=== PATIENT | female | born 1970 | race Asian ===

== ENCOUNTER → 2017-07-02 | Outpatient (CLI) | payer BC, OTHER ==
[~2017-07-02] MED LIST: ASPIR 8181 MG PO; IBUPROFEN 600600 M1 PO; LEVOTHYROXIN0.025 MG PO; PRENATAL PO
== END ==
LOC: RAD 01:42
DX: Z12.31 Encounter for screening mammogram for malignant neoplasm of breast (principal)

== ENCOUNTER → 2018-07-05 | Outpatient (CLI) | payer BC, OTHER | LOC: RAD 01:59 | DX: Z12.31 Encounter for screening mammogram for malignant neoplasm of breast (principal) ==

== ENCOUNTER → 2018-07-19 | Outpatient (CLI) | payer BC, OTHER | LOC: ULTRA 09:28 | DX: N63.21 Unspecified lump in the left breast, upper outer quadrant (principal) ==

== ENCOUNTER → 2018-08-13 | Outpatient (CLI) | payer BC, OTHER | LOC: ULTRA 07:06 | DX: K80.20 Calculus of gallbladder without cholecystitis without obstruction (principal); N92.6 Irregular menstruation, unspecified ==

== ENCOUNTER → 2019-01-17 | Outpatient (CLI) | payer BC, OTHER | LOC: RAD 03:20 | DX: R92.8 Other abnormal and inconclusive findings on diagnostic imaging of breast (principal) ==

== ENCOUNTER → 2019-07-31 | Outpatient (CLI) | payer BC, OTHER | LOC: RAD 02:54 | DX: N60.02 Solitary cyst of left breast (principal) ==

== ENCOUNTER → 2020-08-16 | Outpatient (CLI) | payer BC, OTHER | LOC: BC 08-12 16:13 | PROVIDERS: ATTEND Nurse Practitioner | DX: N63.22 Unspecified lump in the left breast, upper inner quadrant (principal) ==

== ENCOUNTER → 2020-09-02 | Outpatient (CLI) | payer OTHER | LOC: CAT 13:38 | PROVIDERS: ATTEND Family Medicine | DX: Z13.6 Encounter for screening for cardiovascular disorders (principal); I25.10 Atherosclerotic heart disease of native coronary artery without angina pectoris; E78.00 Pure hypercholesterolemia, unspecified ==

== ENCOUNTER → 2021-08-17 | Outpatient (CLI) | payer BC, OTHER | LOC: RAD 15:10 | PROVIDERS: ATTEND Family Medicine | DX: Z12.31 Encounter for screening mammogram for malignant neoplasm of breast (principal); N64.89 Other specified disorders of breast ==